=== PATIENT | female | born 1950 | race Caucasian/White ===

== ENCOUNTER 2020-08-31 07:07 | Day surgery (SDC) | payer OTHER ==
[2020-08-31] MEDS ORDERED: Lidocaine 1% MPF 2 ML VIAL ONE (07:52)
[2020-08-31] MEDS ORDERED: PROPOFOL 40 ML ONE (08:49)
== END 2020-08-31 10:25 | disposition home or self-care (01) ==
LOC: EEVIPCON 07:07 → CSHSDC 07:07
PROVIDERS: ATTEND Internal Medicine Gastroenterology
PROC: 0D758ZZ Dilation of Esophagus, Via Natural or Artificial Opening Endoscopic (ICD-10-PCS; principal; 2020-08-31)
PROC: 0DJD8ZZ Inspection of Lower Intestinal Tract, Via Natural or Artificial Opening Endoscopic (ICD-10-PCS; principal; 2020-08-31)
DX: R13.10 Dysphagia, unspecified (principal); R19.5 Other fecal abnormalities; K21.9 Gastro-esophageal reflux disease without esophagitis; K57.30 Diverticulosis of large intestine without perforation or abscess without bleeding; K64.9 Unspecified hemorrhoids; K44.9 Diaphragmatic hernia without obstruction or gangrene; K29.70 Gastritis, unspecified, without bleeding
CPT/HCPCS: 36416; 88305; J2704